=== PATIENT | female | born 1960 | race Caucasian/White ===

== ENCOUNTER 2020-04-30 17:35 | Emergency (ER) | payer BC, OTHER ==
[~2020-04-30] VITALS: Ht 152.4 cm; Wt 104.3 kg
[~2020-04-30 17:35] MED LIST: HUMALOG100 UNIT/2; HYDROCODONE-AP1 EAC6 PO; LANTUS100 UNIT/M; LIPITOR10 MG; METFORMIN HCL500 MG PO; QUINU10 PD; VICTOZA0.6 MG/0.1; XANAX 0.25 MG0.25 MG
[2020-04-30] MEDS ORDERED: FLEXERIL PO (20:01)
[2020-04-30 20:10] VITALS: BP 129/55
== END 2020-04-30 20:11 | disposition home or self-care (01) ==
LOC: ER 17:35
DX: M62.838 Other muscle spasm (principal); M25.511 Pain in right shoulder; I10 Essential (primary) hypertension; E11.9 Type 2 diabetes mellitus without complications; Z90.49 Acquired absence of other specified parts of digestive tract; Z79.4 Long term (current) use of insulin; Z79.899 Other long term (current) drug therapy; V49.9XXA Car occupant (driver) (passenger) injured in unspecified traffic accident, initial encounter; Y93.89 Activity, other specified; Y92.89 Other specified places as the place of occurrence of the external cause; Y99.8 Other external cause status